=== PATIENT | male | born 1960 | race Caucasian/White ===

== ENCOUNTER 2017-02-16 07:07 | Emergency (ER) | payer OTHER ==
[~2017-02-16] VITALS: Ht 167.6 cm; Wt 63.5 kg
[~2017-02-16 07:07] MED LIST: PHEDML PO; VENTOLIN H0.09 MG/A1 INH
[2017-02-16 08:35] VITALS: BP 115/73
== END 2017-02-16 08:44 | disposition home or self-care (01) ==
LOC: ED 07:07
DX: J45.901 Unspecified asthma with (acute) exacerbation (principal)
CPT/HCPCS: J7512; J7613; Q0092

== ENCOUNTER 2017-10-14 14:44 | Emergency (ER) | payer OTHER ==
[~2017-10-14] VITALS: Ht 162.6 cm; Wt 64.4 kg
[2017-10-14 14:46] VITALS: Ht 162.6 cm; Wt 64.4 kg
[2017-10-14 16:29] LABS: BASOPHIL % 0.1 % (0-2); PLATELET COUNT 291 x10^3mcL (130-400); RED CELL DISTRIBUTION WIDTH 13.9 % (11.5-14.5)
[2017-10-14 16:32] LABS: CALCIUM 9.1 mg/dL (8.5-10.1); CARBON DIOXIDE 29.3 mmol/L (21-32); CHLORIDE SERUM 102 mmol/L (98-107); GFR1 > 60 mL/min; GLUCOSE SERUM 112 mg/dL (74-106); POTASSIUM SERUM 4.3 mmol/L (3.5-5.1); SODIUM SERUM 138 mmol/L (136-145)
[2017-10-14 16:37] LABS: ALKALINE PHOSPHATASE 63 U/L (46-116); ALT/SGPT 31 U/L (16-63); AMYLASE 65 U/L (25-115); AST/SGOT 25 U/L (15-37); LIPASE 68 IU/L (73-393)
[2017-10-14 17:56] VITALS: BP 121/58
== END 2017-10-14 17:57 | disposition home or self-care (01) ==
LOC: ED 14:44
PROVIDERS: Emergency Medicine
DX: R10.9 Unspecified abdominal pain (principal); R11.10 Vomiting, unspecified; R19.7 Diarrhea, unspecified
CPT/HCPCS: 83880; 87046; 87046-59; 87804; J1885; J2405; J7030; Q0092

== ENCOUNTER 2018-08-01 09:52 | Emergency (ER) | payer OTHER ==
[2018-08-01 10:02] VITALS: BP 111/59
== END 2018-08-01 10:48 | disposition home or self-care (01) ==
LOC: ED 09:52
DX: J45.901 Unspecified asthma with (acute) exacerbation (principal); Z85.46 Personal history of malignant neoplasm of prostate
CPT/HCPCS: J7512; J7613; J7644

== ENCOUNTER 2019-05-17 10:13 | Emergency (ER) | payer OTHER ==
[~2019-05-17] VITALS: Ht 167.6 cm; Wt 64.9 kg
[2019-05-17 10:31] VITALS: Ht 167.6 cm; Wt 64.9 kg
[2019-05-17 13:19] VITALS: BP 110/75
== END 2019-05-17 13:19 | disposition home or self-care (01) ==
LOC: ED 10:13
DX: J45.901 Unspecified asthma with (acute) exacerbation (principal); Z85.46 Personal history of malignant neoplasm of prostate; Z98.890 Other specified postprocedural states
CPT/HCPCS: J7613; J7644